=== PATIENT | male | born 1975 | race Caucasian/White ===

== ENCOUNTER 2016-11-19 01:16 | Emergency (ER) | payer OTHER ==
[~2016-11-19] VITALS: Ht 172.7 cm; Wt 90.7 kg
[2016-11-19 01:22] VITALS: BP 144/103
== END 2016-11-19 01:36 | disposition other institution (70) ==
LOC: ED 01:16
DX: Z02.89 Encounter for other administrative examinations (principal)
CPT/HCPCS: 82962